=== PATIENT | male | born 2005 | race Caucasian/White ===

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

== ENCOUNTER 2025-02-06 14:55 | Outpatient (CLI) | payer BC, SELFPAY ==
[2025-02-06 19:09] LABS: Coronavirus 19, PCR Not Detected (NotDetected); Influenza A, PCR Not Detected (NotDetected); Influenza B, PCR Not Detected (NotDetected)
--- OUTSIDE RECORDS SUMMARY | 2025-02-07 09:53 | XMS_ITS | Clinical Summary ---
[facility] Address [address] [place] [address] Care Team Providers Care Billing Collections Specialist Name Role Phone Provider, No Known Primary Care Provider [phone] Allergies No known active allergies Medications brompheniramine-pse udoephedrine-DM 30-2-10 MG/5ML syrupIndications:Vi ral URI with cough Take 5 mL by mouth 4 (Four) Times a Day As Needed for Cough. 150 mL 4 Active ondansetron ODT (ZOFRAN-ODT) 4 MG disintegrating tabletIndications:V iral URI with cough Place 1 tablet on the tongue Every 8 (Eight) Hours As Needed for Nausea. 15 tablet 4 Active Social History Tobacco Use Types Packs/Day Years Used Date Smoking Tobacco: Never Smokeless Tobacco: Never Tobacco Cessation:Counseling Given: Not Answered Alcohol Use Standard Drinks/Week Comments Yes 0 (1 standard drink = 0.6 oz pur e alcohol) occassionally Sex and Gender Information Value Date Recorded Sex Assigned at Not on file Legal Sex Male 12:16 PM EDT Gender Identity Not on file Sexual Orientation Not on file Last Filed Vital Signs Vital Sign Reading Time Taken Comments Blood Pressure 131/87 01/27/2024 12:32 PM EST Pulse 73 01/27/2024 12:32 PM EST Temperature 36.8 C (98.2 F) 01/27/2024 12:32 PM EST Respiratory Rate 18 01/27/2024 12:32 PM EST Oxygen Saturation 98% 01/27/2024 12:32 PM EST Inhaled Oxygen Concentration - - Weight 79.4 kg (175 lb 0.7 oz) 01/27/2024 12:32 PM EST Height 188 cm (6' 2 ) 01/27/2024 12:32 PM EST Body Mass Index 22.47 01/27/2024 12:32 PM EST Plan of Treatment Health Maintenance Due Date Last Done Comments ANNUAL PHYSICAL 2004 HEPATITIS C SCREENING 2004 HPV VACCINES (1 - Male 3-dos e series) 01/24/2019 MENINGOCOCCAL B VACCINE (1 o f 2 - Standard) 2020 INFLUENZA VACCINE 10/06/2024 TDAP/TD VACCINES (3 - Td or Tdap) 10/13/2032 10/13/2022, 08/27/2015 Pneumococcal Vaccine 0-49 Aged Out 03/03/2006 No longer eligible based on patient's age to complete this topic MENINGOCOCCAL VACCINE Completed 05/01/2020 , 08/27/2015 Insurance KINJAL SHELDON [id number] [facility] PPO Care Teams Billing Collections Specialist Relationship Specialty Start Date End Date Provider, No Known [facility] [place] [address] PCP - General 11/02/22
== END 2025-02-06 23:59 | disposition home or self-care (01) ==
LOC: LAB.DROPOF 02-07 09:48
PROVIDERS: PCP Student in an Organized Health Care Education/Training Program; Visit Provider Nurse Practitioner
DX: J06.9 Acute upper respiratory infection, unspecified (principal); J02.9 Acute pharyngitis, unspecified
CPT/HCPCS: 87631